=== PATIENT | male | born 1995 | race Two or more races ===

== ENCOUNTER 2018-10-06 21:28 | Emergency (ER) | payer SELFPAY ==
[~2018-10-06] VITALS: Ht 182.9 cm; Wt 78.9 kg
[2018-10-06 21:48] VITALS: BP 149/99
[2018-10-06] MEDS ORDERED: diphenhydrAMINE HCL 25 MG CAPSULE ONE (21:59)
[2018-10-06] MEDS ORDERED: diphenhydrAMINE HCL 25 MG CAPSULE PO ONE (22:00)
== END 2018-10-06 22:27 | disposition home or self-care (01) ==
LOC: ER 21:36
DX: T63.441A Toxic effect of venom of bees, accidental (unintentional), initial encounter (principal); J45.909 Unspecified asthma, uncomplicated; Y92.89 Other specified places as the place of occurrence of the external cause
CPT/HCPCS: 99282; Q0163